=== PATIENT | male | born 2005 | race Hispanic/Latino ===

== ENCOUNTER 2024-09-19 07:06 | Day surgery (SDC) | payer OTHER ==
[~2024-09-19] VITALS: Ht 185.4 cm; Wt 78.8 kg
[2024-09-19] MEDS ORDERED: LR 1,000 ML IV SCH (08:20)
[2024-09-19] MEDS ORDERED: MIDAZOLAM INJ 2MG/2ML VIAL As Ordered ONE (08:37)
[2024-09-19] MEDS ORDERED: LIDOCAINE 2% 100MG/5ML SDV (FOR ANES.) As Ordered ONE (08:37)
[2024-09-19] MEDS ORDERED: propofoL 200 MG/20 ML VIAL As Ordered ONE (08:37)
[2024-09-19] MEDS ORDERED: fentaNYL 100 MCG/2 ML INJECTION As Ordered ONE (08:37)
[2024-09-19] MEDS ORDERED: ONDANSETRON 4MG 2ML VIAL As Ordered ONE (08:38)
[2024-09-19] MEDS ORDERED: KETOROLAC 30 MG/ML 1ML VIAL As Ordered ONE (08:38)
[2024-09-19] MEDS ORDERED: ACETAMINOPHEN 1000MG/100ML IV BAG As Ordered ONE (08:38)
[2024-09-19] MEDS ORDERED: KETAMINE HCL 200MG/20ML VIAL As Ordered ONE (08:43)
[2024-09-19] MEDS ORDERED: GLYCOPYRROLATE INJ 0.2 MG/ML 2 ML VIAL As Ordered ONE (08:44)
[2024-09-19] MEDS: POLYSPORIN TOPICAL OINTMENT 15GM As Ordered ONE (08:57)
[2024-09-19] MEDS: ceFAZolin SODIUM 2 GM in DEXTROSE 5% (D5W) ADV/MINI-BAG 50 ML IV ONE (09:15)
[2024-09-19 11:22] VITALS: BP 117/53; TEMP 97; O2SAT 98
== END 2024-09-19 11:28 | disposition home or self-care (01) ==
LOC: M SDC 07:06
PROVIDERS: ATTEND Orthopaedic Surgery Hand Surgery
DX: S62.511A Displaced fracture of proximal phalanx of right thumb, initial encounter for closed fracture (principal)
CPT/HCPCS: 29085; 76000; J0131; J0690; J1100; J1596; J1885; J2250; J2405; J3010

== ENCOUNTER → 2024-10-30 | Outpatient (CLI) | payer OTHER | LOC: M SOG 06:51 | PROVIDERS: ATTEND Physician Assistant | DX: S63.641D Sprain of metacarpophalangeal joint of right thumb, subsequent encounter (principal); W18.30XD Fall on same level, unspecified, subsequent encounter ==

== ENCOUNTER → 2025-02-05 | Outpatient (CLI) | payer OTHER | LOC: M SOG 06:52 | PROVIDERS: ATTEND Physician Assistant | DX: S63.641D Sprain of metacarpophalangeal joint of right thumb, subsequent encounter (principal); Z53.9 Procedure and treatment not carried out, unspecified reason ==

== ENCOUNTER → 2025-03-12 | Outpatient (CLI) | payer OTHER | LOC: M SOG 07:23 | PROVIDERS: ATTEND Physician Assistant | DX: S63.641D Sprain of metacarpophalangeal joint of right thumb, subsequent encounter (principal) ==

== ENCOUNTER → 2025-04-19 | Outpatient (CLI) | payer OTHER | LOC: M SOG 07:51 | PROVIDERS: ATTEND Physician Assistant | DX: S63.641D Sprain of metacarpophalangeal joint of right thumb, subsequent encounter (principal) ==